=== PATIENT | female | born 2000 | race Caucasian/White ===

== ENCOUNTER 2021-10-11 08:51 | Emergency (ER) | payer OTHER ==
[~2021-10-11] VITALS: Ht 162.6 cm; Wt 62.1 kg
[2021-10-11 08:54] VITALS: BP 126/69
--- NOTE | 2021-10-11 08:57 | NUR ---
PT TO WAIT IN LOBBY.
--- NOTE | 2021-10-11 09:11 | NUR ---
21 Y/O FEMALE C/O ABD PAIN 8/10 RADIATES TO [facility] WITH DIARRHEA [id number]. DENIES N/V. DENIES FEVER/CHILLS. PT DENIES RX PRIOR TO ARRIVAL. DENIES PMH NKA
--- NOTE | 2021-10-11 10:31 | NUR ---
PT TAKEN TO [facility] FOR LABS.
--- NOTE | 2021-10-11 10:34 | NUR ---
PT TO LOBBY TO WAIT.
[2021-10-11 10:50] LABS: BASOPHILS % (AUTO) 0.3 % (0.0-2.0); EOSINOPHILS # (AUTO) 0.1 K/uL (0-0.4); EOSINOPHILS % (AUTO) 1.3 % (0.0-4.0); HEMATOCRIT 38.3 % (36-48); HEMOGLOBIN 13.1 g/dL (12.0-16.0); LYMPHOCYTES # (AUTO) 2.1 K/uL (2.5-16.5); LYMPHOCYTES % (AUTO) 21.3 % (20.5-51.1); MEAN CORPUSCULAR HEMOGLOBIN 29 pg (27-31); MEAN CORPUSCULAR HGB CONC 34 g/dL (33-37); MEAN CORPUSCULAR VOLUME 84.6 fL (80-94); MONOCYTES # (AUTO) 0.9 K/uL (0.8-1.0); MONOCYTES % (AUTO) 9.6 % (1.7-9.3); NEUTROPHILS # (AUTO) 6.6 K/uL (1.8-7.7); NEUTROPHILS % (AUTO) 67.5 % (42.2-75.2); PLATELET COUNT (AUTO) 318 K/uL (140-450); RED BLOOD CELL COUNT(AUTO) 4.53 MIL/uL (4.20-5.40); RED CELL DISTRIBUTION WIDTH 12.9 % (11.6-13.7); WHITE BLOOD COUNT (AUTO) 9.7 K/uL (4.5-11.0)
[2021-10-11] MEDS ORDERED: TRAM50TA1 PO (11:07)
[2021-10-11] MEDS ORDERED: FAMO-90 PO (11:07)
--- NOTE | 2021-10-11 11:13 | NUR ---
Patient discharged with v/s stable. Written and verbal after care instructions ABOUT ABDOMINAL PAIN given and explained. Patient alert, oriented and verbalized understanding of instructions. Ambulatory with steady gait. All questions addressed prior to discharge. ID band removed. Patient advised to follow up with PMD. Rx of PEPCID AND TRAMADOL given. Patient educated on indication of medication including possible reaction and side effects. Opportunity to ask questions provided and answered. PT D/C BY DR FLOR
[2021-10-11 11:24] LABS: ALBUMIN 4.4 g/dL (3.4-5.0); ANION GAP 14.4 (8-16); CARBON DIOXIDE 26.7 mmol/L (21-32); POTASSIUM 4.1 mmol/L (3.5-5.1)
[2021-10-11 11:47] LABS: CREATININE 0.6 mg/dL (0.6-1.3); TOTAL BILIRUBIN 0.3 mg/dL (0.0-1.0)
== END 2021-10-11 11:13 | disposition home or self-care (01) ==
LOC: MED 08:51
DX: R10.13 Epigastric pain (principal); R10.12 Left upper quadrant pain; R19.7 Diarrhea, unspecified; Z79.899 Other long term (current) drug therapy; Z79.891 Long term (current) use of opiate analgesic
CPT/HCPCS: 36415; 76700; 80053; 82150; 83690; 85025; 99284; Q0092